=== PATIENT | female | born 1995 | race Caucasian/White ===

== ENCOUNTER 2019-11-18 15:44 | Emergency (ER) | payer OTHER ==
[~2019-11-18] VITALS: Ht 160 cm; Wt 77.1 kg
[2019-11-18 15:48] VITALS: BP 128/70
[2019-11-18 17:29] VITALS: BP 128/70
== END 2019-11-18 17:28 | disposition home or self-care (01) ==
LOC: MED 15:44
DX: K59.00 Constipation, unspecified (principal); F12.10 Cannabis abuse, uncomplicated; F17.200 Nicotine dependence, unspecified, uncomplicated
CPT/HCPCS: 81002; 81025; 99282

== ENCOUNTER 2019-11-21 20:40 | Emergency (ER) | payer OTHER ==
[~2019-11-21] VITALS: Ht 162.6 cm; Wt 79.9 kg
[2019-11-21 20:48] VITALS: BP 107/67
--- NOTE | 2019-11-21 20:54 | NUR ---
PT TAKEN TO BED 4
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
--- NOTE | 2019-11-21 22:19 | NUR ---
Kassandra toledo in [facility] - 11/21/19 at [address] Calvillo examining patient.
--- NOTE | 2019-11-21 22:19 | NUR ---
DR IRELAND AT BEDSIDE EVALUATING PT
[2019-11-21] MEDS ORDERED: KETOROLAC 15 MG/ML VIAL IM ONE (22:25)
[2019-11-21] MEDS ORDERED: diazePAM 5 MG TAB PO ONE (22:25)
--- NOTE | 2019-11-21 22:32 | NUR ---
X-Ray at bedside.
--- NOTE | 2019-11-21 22:38 | NUR ---
EKG PERFORMED AT BEDSIDE. EKG READS SINUS RHYTHM @ 59
--- NOTE | 2019-11-21 22:39 | NUR ---
LAB AT BEDSIDE
[2019-11-21 22:48] LABS: BASOPHILS % (AUTO) 0.7 % (0.0-2.0); EOSINOPHILS # (AUTO) 0.1 K/uL (0-0.4); EOSINOPHILS % (AUTO) 1.1 % (0.0-4.0); HEMATOCRIT 40.6 % (36-48); HEMOGLOBIN 13.6 g/dL (12.0-16.0); LYMPHOCYTES # (AUTO) 2.1 K/uL (2.5-16.5); LYMPHOCYTES % (AUTO) 32.2 % (20.5-51.1); MEAN CORPUSCULAR HEMOGLOBIN 31 pg (27-31); MEAN CORPUSCULAR HGB CONC 34 g/dL (33-37); MEAN CORPUSCULAR VOLUME 91.8 fL (80-94); MONOCYTES # (AUTO) 0.6 K/uL (0.8-1.0); MONOCYTES % (AUTO) 9.3 % (1.7-9.3); NEUTROPHILS # (AUTO) 3.6 K/uL (1.8-7.7); NEUTROPHILS % (AUTO) 56.7 % (42.2-75.2); PLATELET COUNT (AUTO) 232 K/uL (140-450); RED BLOOD CELL COUNT(AUTO) 4.42 MIL/uL (4.20-5.40); RED CELL DISTRIBUTION WIDTH 13.5 % (11.6-13.7); WHITE BLOOD COUNT (AUTO) 6.4 K/uL (4.8-10.8)
[2019-11-21 23:12] LABS: ALBUMIN 4.2 g/dL (3.4-5.0); ANION GAP 13.9 (8-16); CARBON DIOXIDE 25.5 mmol/L (21-32); CREATININE 0.8 mg/dL (0.6-1.3); POTASSIUM 3.4 mmol/L (3.5-5.1); TOTAL BILIRUBIN 0.5 mg/dL (0.0-1.0)
[2019-11-21 23:21] VITALS: BP 110/65
[2019-11-22] MEDS ORDERED: POTASSIUM CHLORIDE 10 MEQ TABER PO ONE ×3 (00:15→00:35)
--- NOTE | 2019-11-22 00:31 | NUR ---
Dr. Morales examining patient.
--- NOTE | 2019-11-22 01:09 | NUR ---
Patient discharged with v/s stable. Written and verbal after care instructions given and explained. Patient verbalized understanding. Ambulatory with steady gait. All questions addressed prior to discharge. Advised to follow up with PMD.
== END 2019-11-22 01:09 | disposition home or self-care (01) ==
LOC: MED 20:40
DX: S09.90XA Unspecified injury of head, initial encounter (principal); R07.9 Chest pain, unspecified; F41.9 Anxiety disorder, unspecified; X58.XXXA Exposure to other specified factors, initial encounter; Y93.89 Activity, other specified; Y92.89 Other specified places as the place of occurrence of the external cause; Y99.8 Other external cause status
CPT/HCPCS: 36415; 71045; 80053; 81025; 84484; 85025; 85610; 85730; 93005; 96372; 99285; J1885; Q0092

== ENCOUNTER 2021-05-14 20:52 | Emergency (ER) | payer OTHER ==
[~2021-05-14] VITALS: Ht 167.6 cm; Wt 127.0 kg
[2021-05-14 21:32] VITALS: BP 134/68
--- NOTE | 2021-05-14 21:41 | NUR ---
PT AMBULATED TO BED 05.
--- NOTE | 2021-05-14 21:43 | NUR ---
PT BIB SELF TO ED WITH CHIEF COMPLAINT OF MOUTH PAIN. A&OX4. VERBALLY RESPONSIVE AND ABLE TO COMMUNICATE NEEDS. VSS. PT IS AMBULATORY AND CONTINENT. PER PT SHE NOTICED A SINGLE BUMP ON UPPER LEFT LIP ON TUESDAY (05/09/2021). TODAY, PT STATED WHEN SHE WOKE UP APPROXIMATELY 1930, SHE FELT NEEDLE-LIKE/BURN-LIKE PAIN ON HER LEFT LIP, SHE PALPATED, TENDER TO TOUCH AND NOTICED MULTIPLE BUMPS WITH A PAIN LEVEL OF 7/10. PT STATED SHE TOOK TYLENOL APPROXIMATELY 1700 BECAUSE SHE HAD FEVER. TEMPERATURE WENT BACK TO NORMAL BY THE TIME SHE WOKE UP. PT STATES SHE'S CURRENTLY OVULATING. ERMD AWARE. PMH: MIGRAINES ALLERGIES: DENIES MEDS: SUMATRIPTIN, VITAMIN D
--- NOTE | 2021-05-14 21:59 | NUR ---
AMANDEEP Borrero at bedside for examination
[2021-05-14] MEDS ORDERED: ACYC-276 PO (22:18)
[2021-05-14 22:30] VITALS: BP 117/62
--- NOTE | 2021-05-14 22:30 | NUR ---
The patient's care was reviewed and supervised by Kerline Mandel RN.
== END 2021-05-14 22:30 | disposition home or self-care (01) ==
LOC: MED 20:52
DX: B00.1 Herpesviral vesicular dermatitis (principal)
CPT/HCPCS: 99283

== ENCOUNTER 2021-05-28 01:41 | Emergency (ER) | payer OTHER ==
[~2021-05-28] VITALS: Ht 160 cm; Wt 122.5 kg
[~2021-05-28 01:41] MED LIST: ACYC-276 PO
[2021-05-28 01:51] VITALS: BP 107/74
[2021-05-28] MEDS ORDERED: AZITHROMYCIN 250 MG TAB PO ONE (03:15)
[2021-05-28] MEDS ORDERED: KETOROLAC 60 MG/2 ML VIAL IM ONE (03:15)
[2021-05-28] MEDS ORDERED: predniSONE 20 MG TAB PO ONE (03:15)
--- NOTE | 2021-05-28 03:40 | NUR ---
Dr. Pulido at triage to explain results and treatment plans.
[2021-05-28] MEDS ORDERED: PRED20TA5 PO (03:41)
[2021-05-28] MEDS ORDERED: AZIT250T4 PO (03:41)
[2021-05-28] MEDS ORDERED: PROM118S5 PO (03:41)
[2021-05-28] MEDS ORDERED: IBUP-2213 PO (03:41)
[2021-05-28] MEDS ORDERED: BENZ200C4 PO (03:41)
[2021-05-28 03:57] VITALS: BP 107/74
--- NOTE | 2021-05-28 03:57 | NUR ---
Patient discharged with v/s stable. Written and verbal after care instructions given and explained. Patient alert, oriented and verbalized understanding of instructions. Ambulatory with steady gait. All questions addressed prior to discharge. ID band removed. Patient advised to follow up with PMD. Rx of Zithromycin, Benzonatate, Ibuprofen, Prednisone and Promethazine given. Patient educated on indication of medication including possible reaction and side effects. Opportunity to ask questions provided and answered.
== END 2021-05-28 03:57 | disposition home or self-care (01) ==
LOC: MED 01:41
DX: J40 Bronchitis, not specified as acute or chronic (principal); R09.1 Pleurisy; Z79.899 Other long term (current) drug therapy
CPT/HCPCS: 71045; 96372; 99283; J1885; J7512

== ENCOUNTER 2021-07-04 10:27 | Emergency (ER) | payer OTHER ==
[~2021-07-04] VITALS: Ht 165.1 cm; Wt 115.7 kg
[~2021-07-04 10:27] MED LIST changes: +AZIT250T4 PO; +BENZ200C4 PO; +IBUP-2213 PO; +PRED20TA5 PO; +PROM118S5 PO
[2021-07-04 10:32] VITALS: BP 104/76
[2021-07-04] MEDS ORDERED: DEXAMETHASONE 4 MG/ML VIAL PO ONE (11:00)
[2021-07-04] MEDS ORDERED: OSELTAMIVIR PHOSPHATE 75 MG CAP PO ONE (11:40)
[2021-07-04] MEDS ORDERED: TAM75 PO (11:42)
[2021-07-04 11:56] VITALS: BP 114/52
[2021-07-04] MEDS ORDERED: ACETAMINOPHEN EXTRA STRENGTH 500 MG TAB PO ONE (12:00)
== END 2021-07-04 12:10 | disposition home or self-care (01) ==
LOC: MED 10:27
DX: J10.1 Influenza due to other identified influenza virus with other respiratory manifestations (principal); G43.909 Migraine, unspecified, not intractable, without status migrainosus; Z20.822 Contact with and (suspected) exposure to COVID-19; Z79.84 Long term (current) use of oral hypoglycemic drugs; Z88.8 Allergy status to other drugs, medicaments and biological substances
CPT/HCPCS: 71045; 81002; 81025; 87081; 87426; 87804; 99284; J1100

== ENCOUNTER 2022-01-23 02:03 | Emergency (ER) | payer OTHER ==
[~2022-01-23] VITALS: Ht 162.6 cm; Wt 113.4 kg
[~2022-01-23 02:03] MED LIST changes: +TAM75 PO
[2022-01-23 02:08] VITALS: BP 124/68
--- NOTE | 2022-01-23 02:20 | NUR ---
DR. IRELAND AT BEDSIDE FOR EXAM
[2022-01-23] MEDS ORDERED: TAM75 PO (02:32)
[2022-01-23 02:43] VITALS: BP 128/87
--- NOTE | 2022-01-23 02:45 | NUR ---
Patient discharged with v/s stable. Written and verbal after care instructions given and explained. Patient alert, oriented and verbalized understanding of instructions. Ambulatory with steady gait. All questions addressed prior to discharge. ID band removed. Patient advised to follow up with PMD. Rx of TAMIFLU given. Patient educated on indication of medication including possible reaction and side effects. Opportunity to ask questions provided and answered.
== END 2022-01-23 02:45 | disposition home or self-care (01) ==
LOC: MED 02:03
DX: J10.1 Influenza due to other identified influenza virus with other respiratory manifestations (principal)
CPT/HCPCS: 99283

== ENCOUNTER 2022-04-10 10:16 | Emergency (ER) | payer OTHER ==
[~2022-04-10] VITALS: Ht 165.1 cm; Wt 117.9 kg
[2022-04-10 10:21] VITALS: BP 133/87
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
--- NOTE | 2022-04-10 10:42 | NUR ---
MD BARNEY AT BEDSIDE FOR EVALUATION
[2022-04-10] MEDS ORDERED: KETOROLAC 60 MG/2 ML VIAL IM ONE (10:50)
[2022-04-10] MEDS ORDERED: PENICILLIN G BENZATHINE L-A 1.2 MU/2 ML SYR IM ONE (10:50)
[2022-04-10] MEDS ORDERED: IBUP-2213 PO (10:54)
[2022-04-10] MEDS ORDERED: PRED20TA5 PO (10:54)
--- NOTE | 2022-04-10 11:14 | NUR ---
Patient discharged with v/s stable. Written and verbal after care instructions FOR STREP THROAT given and explained. Patient alert, oriented and verbalized understanding of instructions. Ambulatory with steady gait. All questions addressed prior to discharge. ID band removed. Patient advised to follow up with PMD. Rx of MOTRIN AND PREDNISONE given. Opportunity to ask questions provided and answered.
--- NOTE | 2022-04-10 11:15 | NUR ---
The patient's care was reviewed and supervised by Charlene Goodman RN.
[2022-04-11] MEDS ORDERED: IBUP-2213 PO (19:15)
[2022-04-11] MEDS ORDERED: ACET-10509 PO (19:15)
== END 2022-04-10 11:14 | disposition home or self-care (01) ==
LOC: MED 10:16
DX: J02.0 Streptococcal pharyngitis (principal); R50.9 Fever, unspecified; Z79.899 Other long term (current) drug therapy
CPT/HCPCS: 81025; 96372; 99284; J0561; J1885

== ENCOUNTER 2022-04-11 17:17 | Emergency (ER) | payer OTHER ==
[~2022-04-11] VITALS: Ht 165.1 cm; Wt 117.9 kg
[2022-04-11 17:57] VITALS: BP 108/64
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
[2022-04-11] MEDS ORDERED: IBUP-2213 PO (19:15)
[2022-04-11] MEDS ORDERED: ACET-10509 PO (19:15)
[2022-04-11] MEDS ORDERED: HYDROcodone/APAP 5/325 MG 1 TAB TAB PO ONE (19:30)
[2022-04-11] MEDS ORDERED: IBUPROFEN 600 MG TAB PO ONE (19:30)
--- NOTE | 2022-04-11 19:45 | NUR ---
PT IS ALERT ORIENETD X4. WAITING FOR ORDER FROM
--- NOTE | 2022-04-11 20:41 | NUR ---
Patient discharged with v/s stable. Written and verbal after care instructions given and explained. Patient verbalized understanding. Wheel Chair Assisted with steady gait. All questions addressed prior to discharge. Advised to follow up with PMD.
== END 2022-04-11 20:41 | disposition home or self-care (01) ==
LOC: MED 17:17
DX: S83.012A Lateral subluxation of left patella, initial encounter (principal); Z88.8 Allergy status to other drugs, medicaments and biological substances; Z79.899 Other long term (current) drug therapy; W18.30XA Fall on same level, unspecified, initial encounter; Y93.89 Activity, other specified; Y92.89 Other specified places as the place of occurrence of the external cause; Y99.8 Other external cause status
CPT/HCPCS: 73562; 99283

== ENCOUNTER 2022-12-29 02:40 | Emergency (ER) | payer OTHER ==
[~2022-12-29] VITALS: Ht 165.1 cm; Wt 117.9 kg
[2022-12-29 02:40] VITALS: BP 115/71; PULSE 82; RESP 17; TEMP 97.6; O2SAT 97
[~2022-12-29 02:40] MED LIST changes: +ACET-10509 PO
[2022-12-29] MEDS ORDERED: HYDROcodone/APAP 5/325 MG 1 TAB TAB PO ONE (03:50)
[2022-12-29] MEDS ORDERED: KETOROLAC 30 MG/ML VIAL IM ONE (03:50)
[2022-12-29] MEDS ORDERED: ACET-8905 PO (04:27)
[2022-12-29] MEDS ORDERED: NAPR-54 PO (04:27)
[2022-12-29 04:39] VITALS: BP 115/71; PULSE 82; RESP 17; TEMP 97.6; O2SAT 97
== END 2022-12-29 04:46 | disposition home or self-care (01) ==
LOC: MED 02:40
DX: M77.8 Other enthesopathies, not elsewhere classified (principal); Z79.899 Other long term (current) drug therapy; Z79.1 Long term (current) use of non-steroidal anti-inflammatories (NSAID); Z79.2 Long term (current) use of antibiotics; Z88.8 Allergy status to other drugs, medicaments and biological substances
CPT/HCPCS: 29125; 73110; 96372; 99283; J1885

== ENCOUNTER 2023-11-17 12:09 | Emergency (ER) | payer OTHER ==
[~2023-11-17] VITALS: Ht 162.6 cm; Wt 125.7 kg
[~2023-11-17 12:09] MED LIST changes: -ACET-10509 PO; +ACET500T99 PO; +NAPR-337 PO
[2023-11-17 12:16] VITALS: BP 133/99; PULSE 100; RESP 20; TEMP 98.1; O2SAT 97
[2023-11-17] MEDS: NACL 0.9% 1,000 ML IV ONE (12:56)
[2023-11-17] MEDS: diphenhydrAMINE 50 MG/ML VIAL IVP ONE (12:56)
[2023-11-17] MEDS: PROCHLORPERAZINE 10 MG/2 ML VIAL IVP ONE (12:57)
[2023-11-17] MEDS: KETOROLAC 30 MG/ML VIAL IVP ONE (12:57)
[2023-11-17 12:59] LABS: BASOPHILS # (AUTO) 0.1 K/uL (0.00-0.22); BASOPHILS % (AUTO) 1.3 % (0.0-2.0); EOSINOPHILS # (AUTO) 0.1 K/uL (0-0.4); EOSINOPHILS % (AUTO) 1.1 % (0.0-4.0); HEMOGLOBIN 12.6 g/dL (12.0-16.0); LYMPHOCYTES % (AUTO) 18.8 % (20.5-51.1); MEAN CORPUSCULAR HEMOGLOBIN 29 pg (27-31); MEAN CORPUSCULAR HGB CONC 33 g/dL (33-37); MEAN CORPUSCULAR VOLUME 86.4 fL (80-94); MONOCYTES # (AUTO) 0.7 K/uL (0.8-1.0); MONOCYTES % (AUTO) 6.1 % (1.7-9.3); NEUTROPHILS # (AUTO) 7.8 K/uL (1.8-7.7); NEUTROPHILS % (AUTO) 72.7 % (42.2-75.2); PLATELET COUNT (AUTO) 357 K/uL (140-450); RED CELL DISTRIBUTION WIDTH 14.5 % (11.6-13.7); WHITE BLOOD COUNT (AUTO) 10.7 K/uL (4.8-10.8)
[2023-11-17 13:11] LABS: CALCIUM 8.6 mg/dL (8.5-10.1); CREATININE 0.7 mg/dL (0.6-1.3)
[2023-11-17 14:19] LABS: APPEARANCE,URINE CLEAR (CLEAR); BILIRUBIN,URINE NEGATIVE (NEGATIVE); BLOOD, URINE NEGATIVE (NEGATIVE); COLOR,URINE YELLOW (YELLOW); LEUKOCYTE ESTERASE ,URINE NEGATIVE (NEGATIVE); NITRITE, URINE NEGATIVE (NEGATIVE); PH,URINE 7.5 (5.0-9.0); PROTEIN,URINE NEGATIVE (NEGATIVE); UGLUCOSE NEGATIVE (NEGATIVE); UROBILINOGEN,URINE 0.2 EU/dL (0.2 - 1)
[2023-11-17 14:25] LABS: AMPHETAMINE, URINE NEGATIVE ng/ml (NEG <=1000); BARBITURATE, URINE NEGATIVE ng/ml (NEG <=200); BENZODIAZEPINE, URINE NEGATIVE ng/mL (NEG <=200); COCAINE, URINE NEGATIVE ng/mL (NEG <=300)
[2023-11-17 14:26] LABS: CANNABINOID, URINE NEGATIVE ng/mL (NEG <=50); OPIATE, URINE NEGATIVE ng/mL (NEG <=2000); PHENCYCLIDINE SCREEN,URINE NEGATIVE ng/mL (NEG <=25)
[2023-11-17] MEDS ORDERED: ACET500T99 PO (15:06)
[2023-11-17 15:40] VITALS: BP 133/99; PULSE 100; RESP 20; TEMP 98.1; O2SAT 97
== END 2023-11-17 17:32 | disposition home or self-care (01) ==
LOC: MED 12:09
DX: G43.909 Migraine, unspecified, not intractable, without status migrainosus (principal); R42 Dizziness and giddiness; H53.149 Visual discomfort, unspecified; Z79.899 Other long term (current) drug therapy; Z88.8 Allergy status to other drugs, medicaments and biological substances
CPT/HCPCS: 36415; 80048; 80305; 81003; 81025; 85025; 93005; 96361; 96374; 96375; 99284; J0780; J1200; J1885; J7030